=== PATIENT | female | born 1990 | race Caucasian/White ===

== ENCOUNTER 2024-01-20 19:53 | Emergency (ER) | payer MEDICAID ==
[~2024-01-20] VITALS: Ht 165.1 cm; Wt 82.7 kg
[~2024-01-20 19:53] MED LIST: BUPR300T53 PO; LURA120T PO; MIRT45TA83 PO; PRAZ2CAP2 PO
[2024-01-20 19:58] VITALS: TEMP 97.8
[2024-01-20] MEDS: ondansetron 4mg rapidly disintigrating tab PO ONE (20:42)
[2024-01-20] MEDS: SUMAtriptan succ. 6 MG/0.5ml vial SQ ONE (20:44)
[2024-01-20] MEDS ORDERED: ONDA8TAB13 PO (21:01)
[2024-01-20] MEDS ORDERED: SUMA100T16 PO (21:01)
[2024-01-20 21:11] VITALS: BP 116/83; PULSE 75; RESP 14; O2SAT 97
== END 2024-01-20 21:15 | disposition home or self-care (01) ==
LOC: ER 19:54
DX: G43.909 Migraine, unspecified, not intractable, without status migrainosus (principal); Z79.899 Other long term (current) drug therapy
CPT/HCPCS: 96372; 99283; J3030

== ENCOUNTER 2025-08-15 19:31 | Emergency (ER) | payer MEDICAID ==
[~2025-08-15] VITALS: Ht 165.1 cm; Wt 74.1 kg
[~2025-08-15 19:31] MED LIST changes: +ONDA-245 PO; +SUMA100T16 PO
[2025-08-15 19:42] VITALS: BP 127/83; PULSE 86; RESP 16; O2SAT 98
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
--- NOTE | 2025-08-15 21:16 | RADIOLOGY REPORT ---
Procedure: DI TIB/FIB 2 VWS 08/15/2025 08:22 PM TECHNIQUE: DI TIB/FIB 2 VWS Indication: Blunt injury RIGHT Comparison: None FINDINGS/IMPRESSION: No acute fracture or dislocation. Joint spaces are maintained. The soft tissues are unremarkable.
[2025-08-15 21:33] VITALS: TEMP 97.8
== END 2025-08-15 21:34 | disposition home or self-care (01) ==
LOC: ER 19:32
DX: S80.11XA Contusion of right lower leg, initial encounter (principal); Z79.899 Other long term (current) drug therapy; W50.1XXA Accidental kick by another person, initial encounter; Y93.89 Activity, other specified; Y92.89 Other specified places as the place of occurrence of the external cause; Y99.8 Other external cause status
CPT/HCPCS: 73590; 99283